=== PATIENT | male | born 1960 | race Caucasian/White ===

== ENCOUNTER 2017-02-10 12:23 | Inpatient (IN) | payer OTHER ==
[~2017-02-10] VITALS: Ht 172.7 cm; Wt 75.0 kg
[2017-02-10] MEDS ORDERED: SOD CHLORIDE 0.9% 1,000 ML IV STA (12:41)
[2017-02-10] MEDS ORDERED: HYDROmorphONE 1 MG/ML SYG IV STA ×2 (12:41→15:28)
[2017-02-10] MEDS ORDERED: ONDANSETRON 4 MG INJ IV STA ×2 (12:41→15:28)
[2017-02-10 13:05] LABS: BASOPHIL # 0.1 10^3/ul (0.0-0.1); BASOPHILS % 0.5 % (0.0-2.0); HEMATOCRIT 46.4 % (42.0-52.0); HEMOGLOBIN 15.6 g/dl (14.0-18.0); MEAN CORPUSCULAR HEMOGLOBIN 30.4 pg (29.0-33.0); MEAN CORPUSCULAR HGB CONC 33.6 g/dl (32.0-37.0); MEAN CORPUSCULAR VOLUME 90.3 fl (82.0-101.0); MONOCYTE # 0.2 10^3/ul (0.3-0.9); MONOCYTES % 2.3 % (0.0-11.0); NEUTROPHILS % 85.9 % (39.0-77.0); PLATELET COUNT 276 10^3/UL (140-415); RED BLOOD COUNT 5.14 10^6/ul (4.70-6.10); RED CELL DISTRIBUTION WIDTH 12.8 % (11.5-14.5); WHITE BLOOD COUNT 9.2 10^3/ul (4.8-10.8)
[2017-02-10 13:23] LABS: INR 0.91; PROTIME 12.2 Sec (12.2-14.2)
[2017-02-10 13:27] LABS: ALBUMIN/GLOBULIN RATIO 1.47; BILIRUBIN,INDIRECT 0.4 mg/dl (0-1.1); BILIRUBIN,TOTAL 0.4 mg/dl (0.2-1.3); CALCIUM 9.6 mg/dl (8.4-10.2); CREATININE 0.8 mg/dl (0.61-1.24); POTASSIUM 3.7 mmol/L (3.5-5.1); TOTAL PROTEIN 8.4 g/dl (6.1-8.1)
--- NOTE | 2017-02-10 13:54 | ERA ---
ER Documentation Chief Complaint Date/Time DATE: 02/10/17 TIME: 13:53 Chief Complaint ap with N&V&D x 1 day, HX Diverticulosis HPI This is a 56-year-old male no significant past medical history other than diverticulosis who presents with abdominal pain. He describes nausea, vomiting that is nonbloody nonbilious, diffuse, 10 out of 10 abdominal cramping with loose watery stools. No fevers or chills, no travel no sick contacts no antibiotics. ROS All systems reviewed and are negative except as per history of present illness. Medications Home Meds No Active Prescriptions or Reported Meds Allergies Allergies: Coded Allergies: No Known Allergy (Unverified , 02/10/17) PMhx/Soc History of Surgery: No Anesthesia Reaction: No Hx Neurological Disorder: No Hx Respiratory Disorders: No Hx Cardiac Disorders: No Hx Psychiatric Problems: No Hx Miscellaneous Medical Probl: Yes (diverticulitis) Hx Alcohol Use: No Hx Substance Use: No Hx Tobacco Use: No FmHx Family History: No diabetes Physical Exam Vitals Vital Signs Date Time Temp Pulse Resp B/P Pulse Ox O2 Delivery O2 Flow Rate FiO2 02/10/17 12:25 98.9 102 20 140/89 98 Physical Exam General: Extremely uncomfortable head: Normocephalic, atraumatic Eyes: Pupils equally reactive, EOM intact ENT: Moist mucous membranes Neck: Supple, no lymphadenopathy Respiratory: Lungs clear bilaterally, no distress Cardiovascular: RRR, no murmurs, rubs, or gallops Abdominal: Soft, diffuse tenderness, voluntary guarding, no peritonitis : No inguinal hernia MSK: No edema, no unilateral swelling, 5/5 strength Neurologic: Alert and oriented, moving all extremities, normal speech, no focal weakness, no cerebellar signs Skin: No rash Psych: Normal mood Result Diagram: 02/10/17 1250 02/10/17 1250 Results 24 hrs Laboratory Tests Test 02/10/17 12:50 White Blood Count 9.210^3/ul Red Blood Count 5.1410^6/ul Hemoglobin 15.6g/dl Hematocrit 46.4% Mean Corpuscular Volume 90.3fl Mean Corpuscular Hemoglobin 30.4pg Mean Corpuscular Hemoglobin Concent 33.6g/dl Red Cell Distribution Width 12.8% Platelet Count 69221^3/UL Mean Platelet Volume 10.0fl Neutrophils % 85.9% Lymphocytes % 11.0% Monocytes % 2.3% Eosinophils % 0.0% Basophils % 0.5% Nucleated Red Blood Cells % 0.0/100WBC Neutrophils # (Manual) 7.910^3/ul Lymphocytes # 1.010^3/ul Monocytes # 0.210^3/ul Eosinophils # 0.010^3/ul Basophils # 0.110^3/ul Nucleated Red Blood Cells # 0.010^3/ul Prothrombin Time 12.2Sec Prothrombin Time Ratio 1.0 INR International Normalized Ratio 0.91 Activated Partial Thromboplast Time 25.0Sec Sodium Level 142mmol/L Potassium Level 3.7mmol/L Chloride Level 104mmol/L Carbon Dioxide Level 24mmol/L Anion Gap 18 Blood Urea Nitrogen 18mg/dl Creatinine 0.80mg/dl Glucose Level 132mg/dl Calcium Level 9.6mg/dl Total Bilirubin 0.4mg/dl Direct Bilirubin 0.00mg/dl Indirect Bilirubin 0.4mg/dl Aspartate Amino Transf (AST/SGOT) 20IU/L Alanine Aminotransferase (ALT/SGPT) 22IU/L Alkaline Phosphatase 66IU/L Total Protein 8.4g/dl Albumin 5.0g/dl Globulin 3.40g/dl Albumin/Globulin Ratio 1.47 Lipase 30U/L Current Medications Medications (Trade) Dose Ordered Sig/Maliha Route PRN Reason Start Time Stop Time Status Last Admin Dose Admin Sodium Chloride (NS) 1,000 ml @ 1,000 mls/hr Q1H STAT IV 02/10/17 12:41 02/10/17 13:40 DC 02/10/17 12:50 Hydromorphone HCl (Dilaudid) 1 mg ONCE STAT IV 02/10/17 12:41 02/10/17 12:42 DC 02/10/17 12:50 Ondansetron HCl (Zofran Inj) 4 mg ONCE STAT IV 02/10/17 12:41 02/10/17 12:42 DC 02/10/17 12:50 Procedures/MDM EKG, MONITORS, & DIAGNOSTIC IMAGING: CT abdomen and pelvis: Pending at the time of signout LAB INTERPRETATION: No significant leukocytosis or dehydration MEDICAL DECISION MAKING: The patient presents with nausea vomiting diarrhea and significant abdominal pain. While this is possibly related to viral process given the patient's age and history diverticulosis I cannot rule out acute diverticulitis versus microperforation. CT abdomen and pelvis is indicated. The patient will benefit from fluids, pain control and reassessment. ER COURSE: The patient was given IV fluids, Dilaudid and Zofran with improved symptoms. The patient is pending CT at the time of signout. The patient endorsed to Dr. Sanderson for follow-up. If negative imaging, symptoms controlled the patient can be safely discharged home. This may likely be a viral process. Continue oral hydration. Alternative disposition pending CT I kept the patient and/or family informed of laboratory and diagnostic imaging results throughout the emergency room course. DISPOSITION PLAN: Pending CT imaging Departure Diagnosis: Primary Impression: Abdominal pain Qualified Code: R10.84 - Generalized abdominal pain Additional Impression: Nausea vomiting and diarrhea Condition: Stable PATRICK DE LA GARZA MD Feb 10, 2017 13:54
[2017-02-10] MEDS ORDERED: ONDA4TAB14 PO (14:27)
[2017-02-10] MEDS ORDERED: DICY10CA60 PO (14:27)
--- NOTE | 2017-02-10 14:39 | RADRPT ---
PROCEDURE: CT Abdomen and Pelvis without contrast. CLINICAL INDICATION: Abdominal pain TECHNIQUE: CT of the abdomen and pelvis was performed on a multi-detector scanner without IV contr ast. Coronal and sagittal images were reformatted from the axial data set. One or more of the foll owing dose reduction techniques were used: automated exposure control, adjustment of the mA and/or k V according to patient size, use of iterative reconstruction technique. CTDI = 7.06 mGy. DLP = 398. 62 mGy-cm. COMPARISON: None. FINDINGS: The lung bases are clear. The heart size is normal, without pericardial effusion. The liver, gallb ladder, biliary tree, pancreas, spleen, adrenal glands and kidneys are unremarkable. No urolithiasi s or obstructive uropathy is identified. The stomach is grossly unremarkable. The aorta is of normal caliber. Aortic vascular calcifications are present. There is no retroperit vasquez lymphadenopathy. The sven hepatis region is clear. No bowel obstruction, free intraperitoneal air or abscess is identified. The appendix is well visua lized and normal. No diverticulosis or diverticulitis is identified. There is questionable mild di ffuse colonic wall thickening and pericolonic edema, possibly indicating mild diffuse colitis. Urin silvana bladder is grossly unremarkable. No pelvic mass, free fluid or lymphadenopathy is identified. The surrounding osseous structures are unremarkable. No osteolytic or osteoblastic lesion is detect ed. IMPRESSION: 1. Possible mild diffuse colitis, as above. 2. Aortoiliac atherosclerotic calcifications are present. 3. No mass or lymphadenopathy is identified. RPTAT: HDWR .Figueroa Lundy MD, Date Time Electronically viewed and signed by .Figueroa Lundy MD, MD on 02/10/2017 14:38 .R/
[2017-02-10] MEDS ORDERED: AMPICILLIN/SULB 3 GM/NS (PMX) 100 ML IVPB ONE (15:30)
[2017-02-10] MEDS ORDERED: ACETAMINOPHEN 325 MG TAB PO PRN (16:00)
[2017-02-10] MEDS ORDERED: ONDANSETRON 4 MG INJ IV PRN (16:00)
--- NOTE | 2017-02-10 17:07 | HP ---
Date/Time of Note Date/Time of Note DATE: 02/10/17 TIME: 17:04 Assessment/Plan VTE Prophylaxis VTE Prophylaxis Intervention: SCD's Assessment/Plan Chief Complaint/Hosp Course 1. Abdominal pain secondary to colitis IV antibiotics Pain control and Zofran as needed IV fluids and n.p.o. Prophylaxis: SCDs Problems: HPI/ROS Admit Date/Time Admit Date/Time February 10, 2017 Hx of Present Illness Patient is a 56-year-old male with a history of diverticulitis otherwise denies any medical history. Patient states that he developed severe abdominal pain associated with nausea and diarrhea at this morning. He denies any travel history and denies eating anywhere out of the ordinary. Patient has no other complaint at this time in the ED abdomen pelvis CT showed colitis. ROS Constitutional: improved, no complaints Eyes: no complaints ENT: no complaints Respiratory: no complaints Cardiovascular: no complaints Gastrointestinal: diarrhea, nausea, pain Genitourinary: no complaints Musculoskeletal: no complaints Skin: no complaints Neurologic: no complaints Endocrine: no complaints Lymphatic: no complaints Psychological: nl mood/affect, no complaints Immunologic: no complaints PMH/Family/Social Past Medical History Diverticulitis Past Surgical History History of colonoscopy Family History Significant Family History: no pertinent family hx Social History Alcohol Use: rarely Smoking Status: Current every day smoker Drug Use: none Exam/Review of Systems Vital Signs Vitals Vital Signs Date Time Temp Pulse Resp B/P Pulse Ox O2 Delivery O2 Flow Rate FiO2 02/10/17 12:25 98.9 102 20 140/89 98 Exam Constitutional: alert, oriented Head: normocephalic Respiratory: clear to auscultation Cardiovascular: regular rate and rhythm Gastrointestinal: soft, tender, No distended Musculoskeletal: nl extremities to inspection Labs Result Diagram: 02/10/17 1250 02/10/17 1250 TIFFANIE GARCIA Feb 10, 2017 17:07
[2017-02-10] MEDS ORDERED: morphine 2 MG INJ IV PRN (17:30)
[2017-02-10] MEDS ORDERED: NACL 0.9% 3 ML SYG IV SCH (17:30)
[2017-02-10] MEDS: PIPER-TAZO 3.375 GM IV (PMX) 100 ML IVPB SCH (18:04)
[2017-02-10 18:36] VITALS: TEMP 99
[2017-02-10 19:30] VITALS: BP 145/79; PULSE 80; RESP 16
[2017-02-10 19:45] VITALS: Ht 172.7 cm; Wt 75.0 kg
[2017-02-10 20:00] VITALS: BP 152/74; RESP 20
[2017-02-10] MEDS: D5W-0.45 NACL + KCL 20 MEQ 1,000 ML IV SCH (20:00)
[2017-02-10] MEDS: morphine 4 MG/ML VIAL IV PRN (20:56)
[2017-02-10] MEDS ORDERED: ACETAMINOPHEN 1000MG/100ML IV 100 ML IVPB ONE (21:30)
[2017-02-10 22:45] VITALS: BP 136/72; PULSE 80; RESP 18
[2017-02-11] MEDS: PIPER-TAZO 3.375 GM IV (PMX) 100 ML IVPB SCH ×4 (00:08→17:51)
[2017-02-11] MEDS: morphine 4 MG/ML VIAL IV PRN ×4 (00:09→10:03)
[2017-02-11] MEDS: ONDANSETRON 4 MG INJ IV PRN ×2 (00:09→10:13)
[2017-02-11 02:00] VITALS: BP 136/75; RESP 20
[2017-02-11] MEDS: D5W-0.45 NACL + KCL 20 MEQ 1,000 ML IV SCH ×4 (03:07→23:07)
[2017-02-11 06:54] LABS: BASOPHILS % 0.3 % (0.0-2.0); HEMATOCRIT 41.9 % (42.0-52.0); HEMOGLOBIN 14.4 g/dl (14.0-18.0); LYMPHOCYTES # 1.8 10^3/ul (0.8-2.9); LYMPHOCYTES % 13.9 % (15.0-51.0); MEAN CORPUSCULAR HEMOGLOBIN 31.6 pg (29.0-33.0); MEAN CORPUSCULAR HGB CONC 34.4 g/dl (32.0-37.0); MEAN CORPUSCULAR VOLUME 91.9 fl (82.0-101.0); MEAN PLATELET VOLUME 10.3 fl (7.4-10.4); NEUTROPHILS % 77.4 % (39.0-77.0); PLATELET COUNT 248 10^3/UL (140-415); RED BLOOD COUNT 4.56 10^6/ul (4.70-6.10); WHITE BLOOD COUNT 12.7 10^3/ul (4.8-10.8)
[2017-02-11 07:24] LABS: CALCIUM 8.6 mg/dl (8.4-10.2); CREATININE 0.8 mg/dl (0.61-1.24); MAGNESIUM 1.9 mg/dl (1.7-2.5); PHOSPHORUS 2.8 mg/dl (2.5-4.9); POTASSIUM 3.6 mmol/L (3.5-5.1)
[2017-02-11 08:15] VITALS: BP 146/81; RESP 21
[2017-02-11] MEDS: HYDROmorphONE 1 MG/ML SYG IV PRN ×4 (13:07→22:57)
--- NOTE | 2017-02-11 13:12 | PN ---
Date/Time of Note Date/Time of Note DATE: 02/11/17 TIME: 13:12 Assessment/Plan VTE Prophylaxis VTE Prophylaxis Intervention: SCD's Lines/Catheters IV Catheter Type (from Nrsg): Peripheral IV Urinary Cath still in place: No Assessment/Plan Chief Complaint/Hosp Course 1. Abdominal pain secondary to colitis IV antibiotics Follow-up on stool culture Pain control and Zofran as needed IV fluids and n.p.o. Prophylaxis: SCDs Problems: Subjective 24 Hr Interval Summary Gastrointestinal: pain Exam/Review of Systems Vital Signs Vitals Vital Signs Date Time Temp Pulse Resp B/P Pulse Ox O2 Delivery O2 Flow Rate FiO2 02/11/17 08:15 98.6 66 21 146/81 98 02/10/17 22:45 Room Air Intake and Output 02/10/17 02/10/17 02/11/17 15:00 23:00 07:00 Intake Total 1300 ml 100 ml Balance 1300 ml 100 ml Exam Constitutional: alert, oriented Respiratory: clear to auscultation Cardiovascular: regular rate and rhythm Gastrointestinal: soft, No distended Musculoskeletal: nl extremities to inspection Results Result Diagram: 02/11/17 0558 02/11/17 0558 Results 24 hrs Laboratory Tests Test 02/11/17 05:58 White Blood Count 12.7 #H Red Blood Count 4.56 L Hemoglobin 14.4 Hematocrit 41.9 L Mean Corpuscular Volume 91.9 Mean Corpuscular Hemoglobin 31.6 Mean Corpuscular Hemoglobin Concent 34.4 Red Cell Distribution Width 13.0 Platelet Count 248 Mean Platelet Volume 10.3 Neutrophils % 77.4 H Lymphocytes % 13.9 L Monocytes % 8.0 Eosinophils % 0.0 Basophils % 0.3 Nucleated Red Blood Cells % 0.0 Neutrophils # (Manual) 9.8 H Lymphocytes # 1.8 Monocytes # 1.0 H Eosinophils # 0.0 Basophils # 0.0 Nucleated Red Blood Cells # 0.0 Sodium Level 141 Potassium Level 3.6 Chloride Level 106 Carbon Dioxide Level 24 Anion Gap 15 Blood Urea Nitrogen 17 Creatinine 0.80 Glucose Level 133 Hemoglobin A1c 5.7 Calcium Level 8.6 Phosphorus Level 2.8 Magnesium Level 1.9 Medications Medications Current Medications Potassium Chloride/Dextrose/ Sod Cl (D5-1/2ns + KCl 20 Meq) 1,000 ml @ 100 mls/ hr Q10H IV Last administered on 02/11/17t 05:15; Admin Dose 100 MLS/HR; Start at 17:07 Ondansetron HCl 4 mg 4 mg Q6H PRN IV NAUSEA AND/OR VOMITING Last administered on 02/11/17 10:13; Admin Dose 4 MG; Start 02/10/17 at 17:30 Piperacillin Sod/ Tazobactam Sod (Zosyn 3.375gm/ 100 ml (Pmx)) 100 ml @ 200 mls /hr Q6 IVPB Last administered on 02/11/17 11:29; Admin Dose 200 MLS/HR; Start 02/10/17 at 18:00 Hydromorphone HCl (Dilaudid) 0.5 mg Q3H PRN IV PAIN Last administered on 13:07; Admin Dose 0.5 MG; Start 02/11/17 at 13:00 TIFFANIE GARCIA Feb 11, 2017 13:12
[2017-02-11 14:52] VITALS: BP 136/78; RESP 18
[2017-02-11] MEDS ORDERED: ZOLPIDEM 5 MG TAB PO ONE (21:00)
[2017-02-11 21:27] VITALS: BP 155/87; RESP 18
[2017-02-12] MEDS: PIPER-TAZO 3.375 GM IV (PMX) 100 ML IVPB SCH ×4 (01:37→17:36)
[2017-02-12] MEDS: ONDANSETRON 4 MG INJ IV PRN ×3 (01:39→17:47)
[2017-02-12 02:00] VITALS: BP 163/83; RESP 18
[2017-02-12] MEDS: HYDROmorphONE 1 MG/ML SYG IV PRN ×8 (02:00→23:44)
[2017-02-12 02:32] VITALS: BP 148/82; PULSE 69; RESP 18
[2017-02-12] MEDS: D5W-0.45 NACL + KCL 20 MEQ 1,000 ML IV SCH ×3 (04:15→19:07)
[2017-02-12 06:11] LABS: BASOPHILS % 0.3 % (0.0-2.0); EOSINOPHILS % 0.1 % (0.0-7.0); HEMATOCRIT 43.7 % (42.0-52.0); HEMOGLOBIN 14.8 g/dl (14.0-18.0); LYMPHOCYTES # 2.2 10^3/ul (0.8-2.9); LYMPHOCYTES % 14.6 % (15.0-51.0); MEAN CORPUSCULAR HEMOGLOBIN 30.6 pg (29.0-33.0); MEAN CORPUSCULAR HGB CONC 33.9 g/dl (32.0-37.0); MEAN CORPUSCULAR VOLUME 90.3 fl (82.0-101.0); MEAN PLATELET VOLUME 10.5 fl (7.4-10.4); MONOCYTE # 1.2 10^3/ul (0.3-0.9); MONOCYTES % 8.2 % (0.0-11.0); NEUTROPHILS % 76.5 % (39.0-77.0); PLATELET COUNT 248 10^3/UL (140-415); RED BLOOD COUNT 4.84 10^6/ul (4.70-6.10); RED CELL DISTRIBUTION WIDTH 12.8 % (11.5-14.5); WHITE BLOOD COUNT 14.8 10^3/ul (4.8-10.8)
[2017-02-12 06:27] LABS: CALCIUM 8.5 mg/dl (8.4-10.2); CREATININE 0.7 mg/dl (0.61-1.24); POTASSIUM 3.5 mmol/L (3.5-5.1)
[2017-02-12 08:05] VITALS: BP 160/90; RESP 16
[2017-02-12] MEDS: PANTOPRAZOLE (EC) 40 MG TAB PO SCH (12:12)
[2017-02-12 14:25] VITALS: BP 156/76; RESP 18
--- NOTE | 2017-02-12 18:55 | PN ---
Date/Time of Note Date/Time of Note DATE: 02/12/17 TIME: 18:54 Assessment/Plan VTE Prophylaxis VTE Prophylaxis Intervention: SCD's Lines/Catheters IV Catheter Type (from Nrs): Peripheral IV Urinary Cath still in place: No Assessment/Plan Chief Complaint/Hosp Course 1. Abdominal pain secondary to colitis-clinically improving IV antibiotics Follow-up on stool culture Pain control and Zofran as needed Start clears and advance as tolerated Prophylaxis: SCDs Discharge planning: Anticipate DC home tomorrow if tolerating p.o. diet Problems: Subjective 24 Hr Interval Summary Constitutional: no complaints Exam/Review of Systems Vital Signs Vitals Vital Signs Date Time Temp Pulse Resp B/P Pulse Ox O2 Delivery O2 Flow Rate FiO2 02/12/17 14:25 98.6 64 18 156/76 99 02/12/17 02:32 Room Air Intake and Output 02/11/17 02/11/17 02/12/17 15:00 23:00 07:00 Intake Total 100 ml 1100 ml 1325 ml Balance 100 ml 1100 ml 1325 ml Exam Constitutional: alert, oriented Respiratory: clear to auscultation Cardiovascular: regular rate and rhythm Gastrointestinal: non-tender, soft, No distended Musculoskeletal: nl extremities to inspection Results Result Diagram: 02/12/17 0506 02/12/17 0506 Results 24 hrs Laboratory Tests Test 02/12/17 05:06 White Blood Count 14.8 H Red Blood Count 4.84 Hemoglobin 14.8 Hematocrit 43.7 Mean Corpuscular Volume 90.3 Mean Corpuscular Hemoglobin 30.6 Mean Corpuscular Hemoglobin Concent 33.9 Red Cell Distribution Width 12.8 Platelet Count 248 Mean Platelet Volume 10.5 H Neutrophils % 76.5 Lymphocytes % 14.6 L Monocytes % 8.2 Eosinophils % 0.1 Basophils % 0.3 Nucleated Red Blood Cells % 0.0 Neutrophils # (Manual) 11.3 H Lymphocytes # 2.2 Monocytes # 1.2 H Eosinophils # 0.0 Basophils # 0.0 Nucleated Red Blood Cells # 0.0 Sodium Level 137 Potassium Level 3.5 Chloride Level 104 Carbon Dioxide Level 25 Anion Gap 12 Blood Urea Nitrogen 15 Creatinine 0.70 Glucose Level 144 Calcium Level 8.5 Medications Medications Current Medications Potassium Chloride/Dextrose/ Sod Cl (D5-1/2ns + KCl 20 Meq) 1,000 ml @ 100 mls/ hr Q10H IV Last administered on 02/12/17 15:40; Admin Dose 100 MLS/HR; Start at 17:07 Ondansetron HCl 4 mg 4 mg Q6H PRN IV NAUSEA AND/OR VOMITING Last administered on 02/12/17 17:47; Admin Dose 4 MG; Start 02/10/17 at 17:30 Piperacillin Sod/ Tazobactam Sod (Zosyn 3.375gm/ 100 ml (Pmx)) 100 ml @ 200 mls /hr Q6 IVPB Last administered on 02/12/17 17:36; Admin Dose 200 MLS/HR; Start 02/10/17 at 18:00 Hydromorphone HCl (Dilaudid) 1 mg Q3H PRN IV PAIN Last administered on 17:36; Admin Dose 1 MG; Start 02/12/17 at 12:00 Pantoprazole (Protonix Tab) 40 mg DAILY@06 PO Last administered on 02/12/17 12: 12; Admin Dose 40 MG; Start 02/12/17 at 12:15 TIFFANIE GARCIA Feb 12, 2017 18:55
[2017-02-12 20:00] VITALS: BP 142/73; RESP 18
[2017-02-13] MEDS: PIPER-TAZO 3.375 GM IV (PMX) 100 ML IVPB SCH ×3 (00:26→12:33)
[2017-02-13 02:00] VITALS: BP 111/69; RESP 17
[2017-02-13] MEDS: HYDROmorphONE 1 MG/ML SYG IV PRN ×5 (03:01→15:44)
[2017-02-13] MEDS: D5W-0.45 NACL + KCL 20 MEQ 1,000 ML IV SCH (03:04)
[2017-02-13] MEDS: PANTOPRAZOLE (EC) 40 MG TAB PO SCH (05:11)
[2017-02-13 05:56] LABS: BASOPHILS % 0.3 % (0.0-2.0); EOSINOPHILS # 0.1 10^3/ul (0.0-0.5); EOSINOPHILS % 0.4 % (0.0-7.0); HEMOGLOBIN 14.3 g/dl (14.0-18.0); LYMPHOCYTES # 3.3 10^3/ul (0.8-2.9); LYMPHOCYTES % 27.4 % (15.0-51.0); MEAN CORPUSCULAR HEMOGLOBIN 31.5 pg (29.0-33.0); MEAN CORPUSCULAR VOLUME 92.5 fl (82.0-101.0); MONOCYTE # 1.2 10^3/ul (0.3-0.9); MONOCYTES % 9.6 % (0.0-11.0); NEUTROPHILS % 62.1 % (39.0-77.0); PLATELET COUNT 220 10^3/UL (140-415); RED BLOOD COUNT 4.54 10^6/ul (4.70-6.10); RED CELL DISTRIBUTION WIDTH 12.5 % (11.5-14.5)
[2017-02-13] MEDS ORDERED: PANTOPRAZOLE (EC) 40 MG TAB PO SCH (06:00)
[2017-02-13 06:26] LABS: CALCIUM 8.3 mg/dl (8.4-10.2); CREATININE 0.78 mg/dl (0.61-1.24); POTASSIUM 3.3 mmol/L (3.5-5.1)
[2017-02-13 08:00] VITALS: BP 102/59; RESP 18
[2017-02-13] MEDS ORDERED: POTASSIUM CHLORIDE (SR) 20 MEQ TAB PO STA (12:29)
--- NOTE | 2017-02-13 17:02 | PDOCDIS ---
Discharge Instructions CONDITION Patient Condition: Good HOME CARE INSTRUCTIONS: Diet Instructions: RegularSpecial Diet: Clear liquids, advance as tolerated FOLLOW UP/APPOINTMENTS Follow-up Plan Return to medical care if you do not improve or your symptoms worsen Eat a light diet at first but it is safe to eat whatever you'd like as long as it doesn't cause pain OUSMANE IBRAHIM MD Feb 13, 2017 17:02
--- NOTE | 2017-02-13 19:47 | DS ---
Date/Time of Note Date/Time of Note DATE: 02/13/17 TIME: 19:45 Discharge Summary Admission/Discharge Info Admit Date/Time Feb 10, 2017 at 15:45 Discharge Date/Time Feb 13, 2017 at 17:33 Hx of Present Illness Patient is a 56-year-old male with a history of diverticulitis otherwise denies any medical history. Patient states that he developed severe abdominal pain associated with nausea and diarrhea at this morning. He denies any travel history and denies eating anywhere out of the ordinary. Patient has no other complaint at this time in the ED abdomen pelvis CT showed colitis. Hospital Course Abdominal pain secondary to colitis-clinically improving. Patients symptoms resolved by day 3. He was tolerating PO normally so asked to be discharged home. He was instructed to return to the hospital if symptoms recur or fail to improve Home Meds Active Scripts Ondansetron (Ondansetron Odt) 4 Mg Tab.rapdis, 4 MG PO Q6H Y for NAUSEA AND/OR VOMITING, #30 TAB Prov:PATRICK DE LA GARZA MD 02/10/17 Dicyclomine Hcl* (Bentyl*) 10 Mg Capsule, 10 MG PO QID Y for abdominal cramping , #30 CAP Prov:PATRICK DE LA GARZA MD 02/10/17 Primary Care Provider Not On Staff Doctor Pending Labs Laboratory Tests Test 02/13/17 05:18 White Blood Count 12.010^3/ul (4.8-10.8) Red Blood Count 4.5410^6/ul (4.70-6.10) Hemoglobin 14.3g/dl (14.0-18.0) Hematocrit 42.0% (42.0-52.0) Mean Corpuscular Volume 92.5fl (82.0-101.0) Mean Corpuscular Hemoglobin 31.5pg (29.0-33.0) Mean Corpuscular Hemoglobin Concent 34.0g/dl (32.0-37.0) Red Cell Distribution Width 12.5% (11.5-14.5) Platelet Count 51252^3/UL (140-415) Mean Platelet Volume 10.0fl (7.4-10.4) Neutrophils % 62.1% (39.0-77.0) Lymphocytes % 27.4% (15.0-51.0) Monocytes % 9.6% (0.0-11.0) Eosinophils % 0.4% (0.0-7.0) Basophils % 0.3% (0.0-2.0) Nucleated Red Blood Cells % 0.0/100WBC (0.0-0.0) Neutrophils # (Manual) 7.410^3/ul (1.7-7.5) Lymphocytes # 3.310^3/ul (0.8-2.9) Monocytes # 1.210^3/ul (0.3-0.9) Eosinophils # 0.110^3/ul (0.0-0.5) Basophils # 0.010^3/ul (0.0-0.1) Nucleated Red Blood Cells # 0.010^3/ul (0.0-0.0) Sodium Level 136mmol/L (135-144) Potassium Level 3.3mmol/L (3.5-5.1) Chloride Level 101mmol/L (97-110) Carbon Dioxide Level 27mmol/L (21-31) Anion Gap 11 (8-16) Blood Urea Nitrogen 10mg/dl (7-20) Creatinine 0.78mg/dl (0.61-1.24) Glucose Level 118mg/dl (70-220) Calcium Level 8.3mg/dl (8.4-10.2) Magnesium Level 2.0mg/dl (1.7-2.5) OUSMANE IBRAHIM MD Feb 13, 2017 19:47
== END 2017-02-13 17:33 | disposition home or self-care (01) | DRG 392 ==
LOC: E/R 12:23 → PP2 15:45
PROVIDERS: ADMIT Hospitalist; ATTEND Hospitalist
DX: K52.9 Noninfective gastroenteritis and colitis, unspecified (principal)
CPT/HCPCS: 36415; 74176; 80048; 80053; 83036; 83690; 83735; 84100; 85025; 85610; 85730; 87045; 96361; 96365; 96366; 96368; 96375; 96376; J0131; J0295; J1170; J2270; J2405; J2543; J3480; J7030